=== PATIENT | female | born 1990 ===

== ENCOUNTER 2017-04-25 08:46 | Day surgery (SDC) | payer BC ==
[2017-04-24 12:05] VITALS: BMI 21.4
[2017-04-25 09:25] VITALS: RESP 18
[2017-04-25] MEDS ORDERED: Lidocaine 2% w Epi 1:100,000 Inj IJ ONE (11:20)
[2017-04-25] MEDS ORDERED: Propofol 10 mg/ml Inj (20 ML) ONE (11:34)
[2017-04-25] MEDS ORDERED: Midazolam 2 MG/2 ML VIAL ONE (11:34)
--- NOTE | 2017-04-25 11:35 | CP.SDSHP ---
<Merrick Johnson - Last Filed: 04/25/17 11:33> Same Day Surgery H & P - History Proposed Procedure: Excisional biopsy of the left breast mass Pre-Op Diagnosis: Left breast mass - Previous Medical/Surgical History Pain: 0. No Pain - Allergies Allergies: Allergies No Known Allergies Allergy (Verified 04/24/17 12:05) - Physical Exam Vital Signs: Vital Signs 04/25/17 04/25/17 09:24 09:29 Temperature 98.3 F Pulse Rate 61 61 Respiratory 18 Rate Blood Pressure 125/75 O2 Sat by Pulse 99 Oximetry Mental Status: Alert & Oriented x3 Neuro: WNL Heart: WNL Lungs: WNL GI: WNL - {Optional Preform as Required} Breast: Other (1x1 cm mass of the left breast at 12 o'clock position, mobile, non tender) Abdomen: WNL Integument: WNL Ortho: WNL ENT: WNL - Impression Impression: Left breast mass Pt. Evaluated Today:Candidate for Anesthesia & Procedure: Yes - Date & Time Date: 04/25/17 Time: 11:20 Short Stay Discharge - Short Stay Discharge Admitting Diagnosis/Reason for Visit: D24.2 Disposition: HOME/ ROUTINE Referrals: Merrick Johnson MD [Primary Care Provider] - Instructions: Excisional Breast Biopsy (DC) Additional Instructions (Diet, Activity): Take over the counter pain medication, OK to shower tomorrow, do not remove glue it will come off on its own. If you develop fevers chill or discharge please call Dr. Johnson or go to the ED. <Saulo Mujica - Last Filed: 04/25/17 12:52> Same Day Surgery H & P - Allergies Allergies: Allergies No Known Allergies Allergy (Verified 04/24/17 12:05) - Physical Exam Vital Signs: Vital Signs 04/25/17 04/25/17 09:24 09:29 Temperature 98.3 F Pulse Rate 61 61 Respiratory 18 Rate Blood Pressure 125/75 O2 Sat by Pulse 99 Oximetry Short Stay Discharge - Short Stay Discharge Follow-up: 7-10 days
[2017-04-25] MEDS: Lidocaine 1% Inj (20ml) ONE ×2 (12:03→12:28)
[2017-04-25] MEDS ORDERED: Lactated Ringer's 1,000 ML IV ONE ×10 (12:04→12:27)
[2017-04-25] MEDS ORDERED: Dexamethasone 4 mg/1 ml ONE (12:37)
[2017-04-25] MEDS ORDERED: HYDROmorphone 0.5 mg/0.5 ml ISec IVP PRN (12:51)
--- NOTE | 2017-04-25 12:54 | PCM.SURG1 ---
Surgeon's Initial Post Op Note - Surgeon's Notes Surgeon: Dr. Johnson Rail Director: Dr. Mujica Type of Anesthesia: General Endo Pre-Operative Diagnosis: Left breast mass Operative Findings: See operative dictation Post-Operative Diagnosis: Left breast mass Operation Performed: Left breast inscsional Biopsy Specimen/Specimens Removed: Left breast mass Estimated Blood Loss: EBL {In ML}: 5 Blood Products Given: N/A Drains Used: No Drains Post-Op Condition: Good Date of Surgery/Procedure: 04/25/17 Time of Surgery/Procedure: 12:54
[2017-04-25] MEDS ORDERED: Oxycodone/Acetaminophen 5/325 mg Tab PO PRN ×2 (12:55)
[2017-04-25] MEDS ORDERED: Lactated Ringer's 1,000 ML IV SCH (13:00)
[2017-04-25 14:21] VITALS: O2SAT 97
[2017-04-25 15:30] VITALS: BP 113/72; PULSE 60; TEMP 98.2
--- NOTE | 2017-04-25 16:07 | OP ---
PROCEDURE DATE: PREOPERATIVE DIAGNOSIS: Left breast mass. POSTOPERATIVE DIAGNOSIS: Left breast mass. PROCEDURE: Excisional biopsy of the left breast mass. SURGEON: Merrick Johnson MD. [employer]: Dr. Mujica. TYPE OF ANESTHESIA: General endotracheal intubation. ANESTHESIA ADMINISTERED BY: Singh Garza MD. IV FLUID INTAKE: Crystalloids. ESTIMATED BLOOD LOSS: 1 mL. INTRAOPERATIVE FINDINGS: Mass of the left breast. SPECIMEN: Mass of the left breast. BRIEF HISTORY: Ms. Tomlinson is a very pleasant 26-year-old female, who presented to my office complaining of the palpable mass to the left breast that she noticed approximately 4 months ago. 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 All the risks and benefits of the procedure were explained to the patient and with the patient having a full understanding of all the risks and benefits involved, an informed consent was obtained and the patient was taken to the operating room for above-stated procedure. DESCRIPTION OF PROCEDURE: The patient was brought into the operating room and placed supine on the operating table. Bilateral Flowtron boots were applied to the patient's lower extremities. After successful induction of anesthesia and successful endotracheal intubation by the Anesthesia team, the patient's left breast was prepped with ChloraPrep stick and draped in the standard surgical fashion. Prior to the beginning of the procedure, the patient received prophylactic Ancef antibiotic. Time-out was called in the room and everyone in the room were in agreement. Using the 15-blade scalpel knife, approximately a 2 cm incision was made, retroareola and subsequent to that dissection was carried down with electrical cautery for the dermis and subcutaneous tissues until the palpable mass was encountered. Mass was excised circumferentially with blunt dissection with the finger as well as with electrical cautery and once it was completely freed up, it was passed off to the [facility] as a specimen. At this point in time, the cavity was irrigated and dried. Hemostasis was confirmed and 3 interrupted 3-0 Vicryl sutures were placed in the deep dermal layer. Subsequent to that, skin was closed with 4-0 Monocryl suture in a running subcuticular fashion. At the end of the procedure, incision was infiltrated with 1% lidocaine anesthetic. Subsequent to that, the patient's left breast was washed and dried and Dermabond was applied to the site of the incision. The patient was successfully extubated by the Anesthesia team, transferred to the stretcher and taken to the recovery room in a stable condition. At the end of the procedure, all instrument counts, needles and sponges were correct. Merrick Johnson MD
== END 2017-04-25 15:50 | disposition home or self-care (01) ==
LOC: H.OPSURG 08:46
PROVIDERS: ATTEND Surgery
DX: D24.2 Benign neoplasm of left breast (principal)
CPT/HCPCS: 19120; 88307; J0690; J1100; J1170; J2250; J2405; J2704; J2765; J3010; J7030; J7120

== ENCOUNTER 2018-06-16 22:28 | Emergency (ER) | payer BC ==
[2018-06-16 22:28] VITALS: BMI 21.4
[2018-06-16 22:41] VITALS: O2SAT 100
[2018-06-16] MEDS ORDERED: Povidone Iodine Topical 10% Sol ONE (22:59)
[2018-06-16] MEDS ORDERED: Lidocaine Hydrochloride 1% 10 ML ONE ×2 (23:18→23:36)
--- NOTE | 2018-06-16 23:57 | ED PDOC ---
HPI: Wound Care - HPI Time Seen by Provider: 06/16/18 22:47 Chief Complaint (Nursing): Finger,Hand,&Wrist Chief Complaint (Provider): hand laceration History Per: Patient History Of Present Illness: 27 y/o female presents for evaluation of right hand laceration sustained prior to arrival. Patient states she was trying to close a window in her apartment that already had a small crack in it and her hand went through the window. Denies numbness/weakness left upper extremity, limitation of movement. Tetanus up to date. Past Medical History Reviewed: Historical Data, Nursing Documentation, Vital Signs Vital Signs: Last Vital Signs Temp 98.0 F 06/16/18 22:39 Pulse 94 H 06/16/18 22:39 Resp 18 06/16/18 22:39 BP 137/87 06/16/18 22:39 Pulse Ox 100 06/16/18 22:39 - Medical History PMH: No Chronic Diseases - Surgical History Surgical History: No Surg Hx - Family History Family History: States: No Known Family Hx - Home Medications Home Medications: Ambulatory Orders Medication Instructions Recorded Acetaminophen [Non-Aspirin Pain 500 mg PO PRN PRN 04/25/17 Relief] Control 1 tab PO DAILY 04/25/17 oxyCODONE/Acetaminophen [Percocet 1 tab PO Q4 PRN 04/25/17 5/325 mg Tab] Cephalexin [Keflex] 500 mg PO Q6 #27 capsule 06/17/18 Ibuprofen [Motrin Tab] 1 tab PO Q6 PRN #20 tab 06/17/18 traMADol [Ultram] 50 mg PO Q8 PRN #10 tab 06/17/18 - Allergies Allergies/Adverse Reactions: Allergies Allergy/AdvReac Type Severity Reaction Status Date / Time No Known Allergies Allergy Verified 04/24/17 12:05 Review of Systems ROS Statement: Except As Marked, All Systems Reviewed And Found Negative Musculoskeletal: Positive for: Hand Pain (laceration) Physical Exam - Reviewed Nursing Documentation Reviewed: Yes Vital Signs Reviewed: Yes - Physical Exam Appears: Positive for: Well, Non-toxic, No Acute Distress Pulses-Radial (L): 2+ Pulses-Radial (R): 2+ Extremity: Positive for: Normal ROM, Capillary Refill (<3 sec b/l UE), Other (3cm irregular skin flap laceration palmar right hand base of 4th and 5th digits; + active pulsatile bleeding; no obvious tendon rupture or FB note. DIstal NV/motor intact) - ECG O2 Sat by Pulse Oximetry: 100 - Progress ED Course And Treament: Dr. Ferrera at bedside, tourniquet applied to distal right upper extremity 1% lidocaine injected into wound. Wound irrigated, explored without obvious foreign body or tendon deformity. Pulsatile bleeding resolved. 2 primary sutures placed. xray ordered Procedure: Wound Repair - Time Performed Time Performed: 01:00 - Time Out Time Out: Side verified, Site verified, Patient ID confirmed, Sterile procedures obs. - Consent Obtained Consent obtained: Verbal - Performed by Performed by: Mid-level Provider - Indications Indication(s):: Laceration - Location Location:: Right, Hand Dimensions Length cm: 3cm Dimensions width cm: 0.5cm Depth:: Subcutaneous fascia - Anesthetic Technique Anesthetic Technique: Topical Local/Regional Anesthetic:: Lidocaine 1% - Debris Debris:: None - Irrigated Irrigated with ml of normal saline: 200mL - Complexity Complexity:: Simple (one layer) - Wound repair method Sutures:: # (13 (total)), Size (4'0), Type (prolene), Technique (interrupted) - Muscle repiar layer closed with Muscle repair layer closed with:: Wound well approximated, Abx ointment applied, Dressing applied, Tetanus up to date - Patient tolerated procedure Patient Tolerated Procedure:: Well Medical Decision Making Medical Decision Making: Patient educated on wound care, advised suture removal in 10-14 days Rx Keflex (dose given in ED), ibuprofen, tramadol provided Advised follow up with hand surgeon Return precautions given Disposition - Clinical Impression Clinical Impression: Laceration of right hand - Patient ED Disposition Is Patient to be Admitted: No Counseled Patient/Family Regarding: Studies Performed, Diagnosis, Need For Followup, Rx Given - Disposition Referrals: Aurelio Loza MD [Staff Provider] - Disposition: Routine/Home Disposition Time: 01:52 Condition: STABLE Additional Instructions: Suture removal 10-14 days Take medication as directed Return to ED for worsening/concerning symptoms Prescriptions: Cephalexin [Keflex] 500 mg PO Q6 #27 capsule Ibuprofen [Motrin Tab] 1 tab PO Q6 PRN #20 tab PRN Reason: Pain, Moderate (4-7) traMADol [Ultram] 50 mg PO Q8 PRN #10 tab PRN Reason: Pain, Severe (8-10) Instructions: Laceration Repair With Stitches (DC) Forms: [employer] (Bulgarian), [facility] ED School/Work Excuse
[2018-06-17 02:42] VITALS: BP 132/77; PULSE 86; RESP 16; TEMP 98.4
[2018-06-17] MEDS ORDERED: Oxycodone/Acetaminophen 5/325 mg Tab ONE (02:50)
[2018-06-17] MEDS: Oxycodone/Acetaminophen 5/325 mg Tab PO ONE (02:51)
--- NOTE | 2018-06-17 12:54 | RAD ---
PROCEDURE: Right Hand Radiographs. HISTORY: hand laceration with glass COMPARISON: None available. FINDINGS: BONES: No acute displaced fracture. JOINTS: No dislocation. SOFT TISSUES: Nonspecific rounded lucency between the 4th and 5th digits at the level of the proximal digits; correlate clinically. OTHER FINDINGS: None. IMPRESSION: Nonspecific rounded lucency between the 4th and 5th digit at the level of the proximal digits; correlate clinically. No acute displaced fracture or dislocation identified. Study marked for PA review.
== END 2018-06-17 02:52 | disposition home or self-care (01) ==
LOC: H.ER 22:28
DX: S61.411A Laceration without foreign body of right hand, initial encounter (principal); W25.XXXA Contact with sharp glass, initial encounter; Y92.89 Other specified places as the place of occurrence of the external cause